=== PATIENT | male | born 1930 | race Caucasian/White ===

== ENCOUNTER → 2016-07-23 | Outpatient (CLI) | payer MEDICARE, OTHER | END | disposition home or self-care (01) | LOC: GT 08:02 | PROVIDERS: ATTEND Internal Medicine | DX: N39.0 Urinary tract infection, site not specified (principal); D53.9 Nutritional anemia, unspecified; E11.9 Type 2 diabetes mellitus without complications ==

== ENCOUNTER → 2016-08-03 | Outpatient (CLI) | payer MEDICARE, OTHER | END | disposition home or self-care (01) | LOC: GT 09:00 | PROVIDERS: ATTEND Internal Medicine | DX: Z51.81 Encounter for therapeutic drug level monitoring (principal); E55.9 Vitamin D deficiency, unspecified ==

== ENCOUNTER → 2016-08-27 | Outpatient (CLI) | payer MEDICARE, OTHER | END | disposition home or self-care (01) | LOC: GT 07:40 | PROVIDERS: ATTEND Internal Medicine | DX: I10 Essential (primary) hypertension (principal); E11.9 Type 2 diabetes mellitus without complications; R27.9 Unspecified lack of coordination ==

== ENCOUNTER → 2017-02-25 | Outpatient (CLI) | payer MEDICARE, OTHER | END | disposition home or self-care (01) | LOC: GT 05:51 | PROVIDERS: ATTEND Internal Medicine | DX: E03.9 Hypothyroidism, unspecified (principal); E11.9 Type 2 diabetes mellitus without complications; E55.9 Vitamin D deficiency, unspecified ==

== ENCOUNTER → 2017-05-03 | Outpatient (CLI) | payer MEDICARE, OTHER | END | disposition home or self-care (01) | LOC: GT 09:50 | PROVIDERS: ATTEND Internal Medicine | DX: J11.2 Influenza due to unidentified influenza virus with gastrointestinal manifestations (principal) ==

== ENCOUNTER → 2017-06-14 | Outpatient (CLI) | payer MEDICARE, OTHER | LOC: GT 06:20 | PROVIDERS: ATTEND Internal Medicine | DX: D53.9 Nutritional anemia, unspecified (principal); D50.9 Iron deficiency anemia, unspecified; I10 Essential (primary) hypertension; R60.9 Edema, unspecified | CPT/HCPCS: 36415; 80053; 85025; P9603 ==

== ENCOUNTER → 2017-07-26 | Outpatient (CLI) | payer MEDICARE, OTHER | LOC: GT 06:25 | PROVIDERS: ATTEND Internal Medicine | DX: E11.9 Type 2 diabetes mellitus without complications (principal); I50.9 Heart failure, unspecified ==

== ENCOUNTER → 2017-08-02 | Outpatient (CLI) | payer MEDICARE, OTHER | LOC: GT 07:13 | PROVIDERS: ATTEND Internal Medicine | DX: I10 Essential (primary) hypertension (principal); E11.9 Type 2 diabetes mellitus without complications; E55.9 Vitamin D deficiency, unspecified; E50.9 Vitamin A deficiency, unspecified; E63.9 Nutritional deficiency, unspecified; D50.9 Iron deficiency anemia, unspecified; E03.9 Hypothyroidism, unspecified ==

== ENCOUNTER → 2017-08-26 | Outpatient (CLI) | payer MEDICARE, OTHER | LOC: GT 06:15 | PROVIDERS: ATTEND Internal Medicine | DX: G31.84 Mild cognitive impairment of uncertain or unknown etiology (principal); E11.9 Type 2 diabetes mellitus without complications; E03.9 Hypothyroidism, unspecified; E63.9 Nutritional deficiency, unspecified; D50.9 Iron deficiency anemia, unspecified; I10 Essential (primary) hypertension ==

== ENCOUNTER → 2017-09-06 | Outpatient (CLI) | payer MEDICARE, OTHER | LOC: GT 10:12 | PROVIDERS: ATTEND Internal Medicine | DX: R60.9 Edema, unspecified (principal); I12.9 Hypertensive chronic kidney disease with stage 1 through stage 4 chronic kidney disease, or unspecified chronic kidney disease; N18.9 Chronic kidney disease, unspecified ==

== ENCOUNTER → 2018-05-17 | Outpatient (CLI) | payer MEDICARE, OTHER | LOC: GT 07:08 | PROVIDERS: ATTEND Internal Medicine | DX: N39.0 Urinary tract infection, site not specified (principal) ==

== ENCOUNTER → 2018-05-28 | Outpatient (CLI) | payer MEDICARE, OTHER ==
--- NOTE | 2018-05-28 17:49 | US ---
EXAM DESCRIPTION: Extremity,Lower RT Arteries (accession [id number]), Extremity,Lower LT Arteries (accession [id number]): Ultrasound. CLINICAL HISTORY: PERIPHERAL VASCULAR DISEASE. Graft in the left femoral artery. COMPARISON: None. TECHNIQUE: Doppler evaluation of the bilateral lower extremity arterial flow waveforms and velocities. FINDINGS: Arterial waveforms in the right lower extremity are triphasic in the right SPEECH ASSISTANT and right peroneal artery. Biphasic in the right femoral artery, right popliteal artery, and the right posterior tibial artery. Broader waveforms in the popliteal artery and posterior tibial artery. Large broad monophasic waveform in the right dorsalis pedis artery.. Arterial waveforms in the left lower extremity are triphasic in the left SPEECH ASSISTANT. Biphasic in the proximal left femoral artery. Monophasic from the left mid femoral artery to the dorsalis pedis artery with progressively decreasing height, and progressive broadening of the waveforms.. Comments: Velocities are higher in the right lower extremity. Significantly high velocity in the right dorsalis pedis artery could indicate an early stenosis more proximally. IMPRESSION: Bilateral Doppler evaluation of lower extremity systems showing significant atherosclerotic occlusive disease from the left mid femoral artery to the left dorsalis pedis artery. Possible stenosis in the distal right anterior tibial artery or proximal right dorsalis pedis artery. Electronically signed by: Evan Stoner MD 05/28/2018 5:48 PM COMMERCIAL CREDIT HEAD
--- NOTE | 2018-05-28 17:49 | US ---
EXAM DESCRIPTION: Extremity,Lower RT Arteries (accession [id number]), Extremity,Lower LT Arteries (accession [id number]): Ultrasound. CLINICAL HISTORY: PERIPHERAL VASCULAR DISEASE. Graft in the left femoral artery. COMPARISON: None. TECHNIQUE: Doppler evaluation of the bilateral lower extremity arterial flow waveforms and velocities. FINDINGS: Arterial waveforms in the right lower extremity are triphasic in the right MELT SUPERVISOR and right peroneal artery. Biphasic in the right femoral artery, right popliteal artery, and the right posterior tibial artery. Broader waveforms in the popliteal artery and posterior tibial artery. Large broad monophasic waveform in the right dorsalis pedis artery.. Arterial waveforms in the left lower extremity are triphasic in the left MELT SUPERVISOR. Biphasic in the proximal left femoral artery. Monophasic from the left mid femoral artery to the dorsalis pedis artery with progressively decreasing height, and progressive broadening of the waveforms.. Comments: Velocities are higher in the right lower extremity. Significantly high velocity in the right dorsalis pedis artery could indicate an early stenosis more proximally. IMPRESSION: Bilateral Doppler evaluation of lower extremity systems showing significant atherosclerotic occlusive disease from the left mid femoral artery to the left dorsalis pedis artery. Possible stenosis in the distal right anterior tibial artery or proximal right dorsalis pedis artery. Electronically signed by: Evan Stoner MD 05/28/2018 5:48 PM REVENUE STAMP CUTTER
== END ==
LOC: US 08:54
PROVIDERS: ATTEND Internal Medicine
DX: I73.9 Peripheral vascular disease, unspecified (principal); I70.203 Unspecified atherosclerosis of native arteries of extremities, bilateral legs

== ENCOUNTER 2018-08-12 07:45 | Inpatient (IN) | payer MEDICARE, OTHER ==
--- NOTE | 2018-08-12 08:27 | RAD ---
EXAM DESCRIPTION: Hip,Left 2 Views CLINICAL HISTORY: fall with pain in left hip COMPARISON: None. IMPRESSION: 2 views of the left hip show comminuted mildly displaced intertrochanteric fracture of the left hip with mild proximal displacement of the distal fracture fragment. Mild varus deformity is identified. Severe vascular calcifications are identified. Surgical clips in the medial left thigh soft tissue is seen. Electronically signed by: Blane Smiley MD 08/12/2018 8:24 AM CDT
--- NOTE | 2018-08-12 08:28 | RAD ---
EXAM DESCRIPTION: Pelvis CLINICAL HISTORY: fall with pain in left hip COMPARISON: None. IMPRESSION: Single AP supine view of the pelvis shows rotation of the pelvis. Mildly displaced comminuted intertrochanteric fracture of the left hip is seen as described on x-rays of the left hip from today. Intramedullary giselle and gamma nail fixation of the right proximal femur is seen with healed intertrochanteric fracture. Moderate osteoarthritic changes of the right hip are seen with mild osteoarthritic changes of the left hip. Osseous structures are diffusely osteopenic. Severe vascular calcifications are identified. Electronically signed by: Blane Smiley MD 08/12/2018 8:25 AM CDT
--- NOTE | 2018-08-12 08:49 | ED.PDOC ---
History of Present Illness - General Chief Complaint: Lower Extremity Injury Stated Complaint: L lower leg deformity/pain Time Seen by Provider: 08/12/18 07:49 Source: patient Exam Limitations: no limitations - History of Present Illness Initial Comments: the patient is an 88-year-old male brought in for more than the intermediate secondary to an accidental fall with left hip pain as well as some mild external rotation. The patient was unable to walk after this. Normally he walks with a walker. He is alert pleasant and cooperative. Pain is moderate without movement but does increase with movement. He does have known history of significant peripheral vascular disease and does have a pressure ulcer that is slowly healing on the left heel. He does appear to be in a normal sinus rhythm on the quality assurance monitor body. No other obvious injuries but aside from a small contusion to the left forearm. He apparently does not take any high potency blood thinners. He is new to our system here. He had a right hip done 5 years ago in [place]. Timing/Duration: momentarily Severity: moderate Improving Factors: immobilization Worsening Factors: movement Associated Symptoms: denies symptoms Allergies/Adverse Reactions: Allergies Doxycycline Allergy (Verified 08/12/18 08:00) Penicillins Allergy (Verified 08/12/18 08:00) Sulfa Antibiotics Allergy (Verified 08/12/18 08:00) Home Medications: Ambulatory Orders Acetaminophen [Tylenol] 500 mg PO Q6HR PRN 08/12/18 Arginine 500 mg PO BID 08/12/18 Ascorbic Acid [Vitamin C] 500 mg PO DAILY 08/12/18 Aspirin [Cesario Low Dose] 81 mg PO DAILY 08/12/18 Cetirizine HCl [ZyrTEC] 10 mg PO DAILY 08/12/18 Cholecalciferol [Vitamin D3] 1,000 unit PO DAILY 08/12/18 Ferrous Sulfate [Feosol Tab] 325 mg PO DAILY 08/12/18 Folic Acid 400 mcg PO DAILY 08/12/18 Furosemide Tab [Lasix Tab] 40 mg PO .Q0800&1200 08/12/18 Insulin Detemir [Levemir Pen] 50 units SC DAILY 08/12/18 Levothyroxine Sodium 137 mcg PO DAILY 08/12/18 Lisinopril 20 mg PO DAILY 08/12/18 Melatonin 6 mg PO BEDTIME PRN 08/12/18 Multiple Vitamins W/ Minerals [Multi Vitamin and Mineral] 1 tab PO DAILY 08/12/18 Polyethylene Glycol 3350 [Miralax] 17 gm PO DAILY 08/12/18 Vitamin A [Natural Vitamin A] 10,000 unit PO DAILY 08/12/18 guaiFENesin/DEXTROMETH SYRUP [Robitussin Dm] 10 ml PO TID PRN 08/12/18 Review of Systems - Review of Systems Constitutional: States: no symptoms reported EENTM: States: no symptoms reported Respiratory: States: no symptoms reported Cardiology: States: no symptoms reported Gastrointestinal/Abdominal: States: no symptoms reported Genitourinary: States: no symptoms reported Musculoskeletal: States: see HPI Skin: States: see HPI Neurological: States: other - he does apparently have some mild dementia but he knows where he is in what is going on. He is able to give a fair amount of his medical history accurately. He is not certain of all of his medications. Endocrine: States: no symptoms reported Hematologic/Lymphatic: States: no symptoms reported All other Systems: No Change from Baseline Past Medical History (General) - Patient Medical History Hx Stroke: No Hx Cardiac Disorders: Yes - PVD Hx Congestive Heart Failure: No Hx Hypertension: Yes Hx Thyroid Disease: Yes - Hypothyroidism Hx Diabetes: Yes Hx Renal Disease: Yes - Chronic kidney disease - Vaccination History Hx Influenza Vaccination: - Unknown Hx Pneumococcal Vaccination: - Unknown - Social History Hx Tobacco Use: No Hx Alcohol Use: No - Activities of Daily Living Penitentiary/Assisted Living (if applicable):: [facility] Family Medical History - Family History Father Family History: Unknown Living Status: Physical Exam - Physical Exam General Appearance: Alert, No apparent distress Eye Exam: bilateral normal Ears, Nose, Throat: hearing grossly normal, normal ENT inspection, normal pharynx Neck: full range of motion, supple Respiratory: lungs clear, normal breath sounds, no respiratory distress, no accessory muscle use Cardiovascular/Chest: regular rate, rhythm, no edema Peripheral Pulses: radial,right: 2+, radial,left: 2+, dorsalis pedis,right: 1+, dorsalis pedis,left: 1+ Gastrointestinal/Abdominal: non tender, soft Rectal Exam: deferred Back Exam: no vertebral tenderness Extremity: no calf tenderness, pelvis stable - normal range of motion given age and previous surgery of the right lower extremity. No pain to palpation of the left foot kneeor distal femur. Pain is in the left hip. It is made worse with any movement., other - he does have +1 chronic edema to the left foot. Neurologic: oncology rep II-XII nml as tested, alert, normal mood/affect, oriented x 3 Skin Exam: normal color - except for bruising as noted above. Comments: Vital Signs - 24 hr 08/12/18 08:01 Temperature 97.9 F Pulse Rate [ 88 Apical] Respiratory 18 Rate Blood Pressure 171/87 [Left Arm] O2 Sat by Pulse 93 L Oximetry Progress - Progress Progress: 08/12/18 08:52 the patient is an 88-year-old male presenting from the intermediate after an accidental fall. He has sustained a comminuted mildly displaced left intertrochanteric fracture that is closed. Neurovascularly he appears to be at his baseline. He does have chronic peripheral vascular disease of the left lower extremity. He is not requiring any pain medications at this time. We will go ahead and place a Bautista catheter. Preoperative blood work is being ordered. He will likely need of repair to resume mobility and functional status. Orthopedics has been contacted and we are waiting for their evaluation. No other obvious large injury from the fall. 08/12/18 09:30 the patient had a packet of generally this morning before he got out of bed. No other oral intake at this time. He has not yet had his morning medications. The patient is going to be admitted to the internal medicine service and orthopedics will plan to repair the fracture. Coags are still pending secondary to technical difficulties. - Results/Orders Results/Orders: Laboratory Results - last 24 hr 08/12/18 08/12/18 08/12/18 08:30 08:30 08:30 WBC 4.0 L RBC 3.72 L Hgb 11.2 L Hct 33.7 L MCV 90.7 MCH 30.2 MCHC 33.3 RDW 14.8 H Plt Count 102 L MPV 11.7 H Absolute Neuts (auto) 2.60 Absolute Lymphs (auto) 1.10 Absolute Monos (auto) 0.30 Absolute Eos (auto) 0.00 Absolute Basos (auto) 0.00 Neutrophils % 64.9 Lymphocytes % 26.3 Monocytes % 8.5 Eosinophils % 0.0 L Basophils % 0.3 PTT (SP) Cancelled Sodium 136 Potassium 4.5 Chloride 102 Carbon Dioxide 25 Anion Gap 13.5 BUN 44 H Creatinine 1.76 H BUN/Creatinine Ratio 25.0 H Random Glucose 116 H Serum Osmolality 284.1 Calcium 8.5 Magnesium 2.1 Total Bilirubin 0.6 AST 20 ALT 14 Alkaline Phosphatase 70 Serum Total Protein 6.8 Albumin 3.6 Globulin 3.2 Albumin/Globulin Ratio 1.1 x-ray of left hip and pelvis show a moderately comminuted mildly displaced intertrochanteric fracture on the left closed. Departure - Departure Clinical Impression: Closed fracture of left hip Qualifiers: Encounter type: initial encounter Qualified Code(s): S72.002A - Fracture of unspecified part of neck of left femur, initial encounter for closed fracture Disposition: Admit Patient Condition: Fair Departure Forms: ED Discharge - Pt. Copy, Patient Portal Self Enrollment Referrals: RJ BRADSHAW [Primary Care Provider] - 1-2 Weeks Home Medications: Ambulatory Orders Acetaminophen [Tylenol] 500 mg PO Q6HR PRN 08/12/18 Arginine 500 mg PO BID 08/12/18 Ascorbic Acid [Vitamin C] 500 mg PO DAILY 08/12/18 Aspirin [Cesario Low Dose] 81 mg PO DAILY 08/12/18 Cetirizine HCl [ZyrTEC] 10 mg PO DAILY 08/12/18 Cholecalciferol [Vitamin D3] 1,000 unit PO DAILY 08/12/18 Ferrous Sulfate [Feosol Tab] 325 mg PO DAILY 08/12/18 Folic Acid 400 mcg PO DAILY 08/12/18 Furosemide Tab [Lasix Tab] 40 mg PO .Q0800&1200 08/12/18 Insulin Detemir [Levemir Pen] 50 units SC DAILY 08/12/18 Levothyroxine Sodium 137 mcg PO DAILY 08/12/18 Lisinopril 20 mg PO DAILY 08/12/18 Melatonin 6 mg PO BEDTIME PRN 08/12/18 Multiple Vitamins W/ Minerals [Multi Vitamin and Mineral] 1 tab PO DAILY 0 08/12/18 Polyethylene Glycol 3350 [Miralax] 17 gm PO DAILY 08/12/18 Vitamin A [Natural Vitamin A] 10,000 unit PO DAILY 08/12/18 guaiFENesin/DEXTROMETH SYRUP [Robitussin Dm] 10 ml PO TID PRN 08/12/18 Decision To Admit - Decistion To Admit Decision to Admit Reason: Medical Nature Decision to Admit Date: 08/12/18 Decision to Admit Time: 09:32
[2018-08-12] MEDS ORDERED: LIDOCAINE 1% 10 ML VIAL INJ ONE (10:00)
[2018-08-12] MEDS ORDERED: PROPOFOL 200 MG/20 ML VIAL IV ONE (10:00)
[2018-08-12] MEDS ORDERED: DEXAMETHASONE INJ 10 MG/ML VIAL IV ONE (10:00)
[2018-08-12] MEDS ORDERED: ePHEDrine SULF 50 MG/ML IV ONE (10:00)
[2018-08-12] MEDS ORDERED: ONDANSETRON INJ 4 MG/2 ML VIAL IV ONE (10:00)
--- NOTE | 2018-08-12 11:51 | HP ---
SUPERVISING PHYSICIAN: Chris Anderson MD CHIEF COMPLAINT: Left hip pain. HISTORY OF PRESENT ILLNESS: This is an 88 year-old male patient who resides at the skilled nursing who had an accidental fall and presented with left hip. He normally uses a walker but hasn't felt himself today. He has not been at this hospital before. He is noted to have some mild external rotation of the hips. X-ray was done of the left hip. This showed a comminuted mildly displaced intertrochanteric fracture of the left hip with mild displacement of the distal fracture fragment. He is admitted for this reason after Dr. Abdi was consulted and agreed to surgical intervention. On examination, the patient is not complaining of any significant pain but mild pain. He is really wanting to get some water at this time. PAST MEDICAL HISTORY: 1. Hypertension. 2. Coronary artery disease. 3. Type 2 diabetes mellitus. 4. Anemia. 5. Hypothyroidism. PAST SURGICAL HISTORY: 1 Coronary artery bypass graft. 2. Right hip surgery. 3. Transurethral resection of prostate. CURRENT MEDICATIONS: 1. Tylenol 500 mg every 6 hours p.r.n. 2. Arginine 500 mg mg p.o. b.i.d. 3. Vitamin C 500 mg p.o. daily. 4. Aspirin 81 mg p.o. daily. 5. Cetirizine 30 mg p.o. daily. 6. Vitamin D3 1000 units p.o. daily. 7. Ferrous sulfate 325 mg p.o. daily. 8. Folic acid 400 mcg p.o. daily. 9. Lasix 40 mg p.o. in the morning. 10. Guaifenesin/dextromethorphan 2 mL 3 times a day p.r.n. 11. Levemir 50 units subcutaneous daily. 12. Levothyroxine 137 mcg p.o. daily. 13. Lisinopril 20 mg p.o. daily. 14. Melatonin 60 mg p.o. at bedtime. 15. Multivitamin 1 tab p.o. daily. 16. Miralax 17 grams p.o. daily. 17. Vitamin A 10,000 units p.o. daily. ALLERGIES: Doxycycline, penicillin and sulfa drugs. FAMILY HISTORY: The patient does not report any significant family history. SOCIAL HISTORY: The patient lives in a skilled nursing. Denies alcohol or illicit, no smoking. REVIEW OF SYSTEMS: CONSTITUTIONAL: No fevers, chills, no recent weight loss HEENT: Negative for nasal congestion, headache, sore throats, vision changes. RESPIRATORY: No coughing or pleuritic chest pain. CARDIOVASCULAR: No chest pain, palpitations or peripheral edema. GASTROINTESTINAL: No nausea, vomiting, diarrhea, constipation or abdominal pain. GENITOURINARY: Negative for urinary frequency or flank pain. HEMATOLOGIC: No easy bruising or transfusion reactions. MUSCULOSKELETAL: Positive for the left hip pain. No other joint swelling or joint pain at this time. ENDOCRINE: No polydipsia, polyuria, palpitations or cold intolerance. NEUROLOGIC: No seizures or syncopal episodes. PHYSICAL EXAMINATION: VITAL SIGNS: Blood pressure 130/28, heart rate 86, respiratory rate 18, temperature 97.5. Oxygen saturation 99%, GENERAL: The patient is alert. HEENT: Tympanic membranes clear bilaterally. Oropharynx is pink, moist without any lesions. RESPIRATORY: Lungs clear to auscultation bilaterally. CARDIOVASCULAR: Regular rate and rhythm\, normal S1, S2. ABDOMEN: Soft Positive bowel sounds. EXTREMITIES: Lower extremities show mild external rotation of the left lower extremity. He does have some tenderness to palpation over the lateral aspect of the left hip and knee. Peripheral pulses are 2+, capillary refill less than 2 seconds. LABORATORY: Reviewed and show a white count of 4.0, hemoglobin 11.2, hematocrit 33.7, platelet count 102. Coagulation studies are normal. Chemistries remarkable for elevated BUN of 44, creatinine 1.76, glucose 116. Urinalysis is not consistent with a urinary tract infection. ASSESSMENT: 1. Left hip fracture. 2. Hypertension. 3. History of coronary artery disease without acute complications. 4. Diabetes mellitus type 2. 5. History of dementia but at this time he is pleasant and alert and appears to be oriented. 6. Acute on chronic kidney disease. PLAN: At this time, we will admit the patient and will undergo surgical intervention by Dr. Abdi tomorrow. I have placed the preoperative orders in the computer. I will resume his home medications as well and will be anticoagulated postoperatively. I am going to start some IV fluids on him as he does have some acute kidney injury. [id number] [facility]
[2018-08-12] MEDS ORDERED: SODIUM CHLORIDE 0.9% (FLUSH) 10 ML SYG IV PRN ×2 (13:31→13:32)
[2018-08-12] MEDS ORDERED: VANCOMYCIN HCL INJ 1,000 MG in SODIUM CHLORIDE 0.9% 250ML 250 ML IVPB ONE (13:31)
[2018-08-12] MEDS ORDERED: LACTATED RINGERS 1,000 ML IVS PRN (13:31)
[2018-08-12] MEDS ORDERED: IV SET AND CAP CHANGE INJ INJ SCH (14:00)
[2018-08-12] MEDS ORDERED: SODIUM CHLORIDE 0.9% 250ML 250 ML ONE (14:09)
[2018-08-12] MEDS ORDERED: VANCOMYCIN HCL INJ 1,000 MG VIAL IVPB ONE ×2 (14:10→14:16)
--- NOTE | 2018-08-12 14:41 | RAD ---
EXAM DESCRIPTION: Chest,1 View CLINICAL HISTORY: Pre-Op COMPARISON: None available FINDINGS: Postoperative changes in the mediastinum. The cardiac silhouette is at the upper limits of normal size. Mediastinal contours are otherwise unremarkable. There is no airspace consolidation or pleural effusion. The bronchovascular markings are within normal limits, and the lungs are not hyperinflated. There is no pneumothorax or acute fracture. IMPRESSION: Postoperative changes in the mediastinum without acute intrathoracic abnormality. Electronically signed by: Cesar Alonzo MD 08/12/2018 2:38 PM CDT
[2018-08-12] MEDS: IV SET AND CAP CHANGE INJ INJ SCH (15:36)
[2018-08-12] MEDS: HYDROcodone 7.5MG/APAP 325MG 1 EA TAB PO PRN (20:04)
[2018-08-12] MEDS ORDERED: MORPHINE SULFATE INJ 10 MG/ML VIAL IV PRN (20:08)
[2018-08-13] MEDS: LACTATED RINGERS 1,000 ML IVS PRN ×2 (00:09→12:30)
[2018-08-13] MEDS ORDERED: BUPIVACAINE 0.5% 30 ML VIAL INJ ONE ×2 (06:34→09:06)
[2018-08-13] MEDS ORDERED: ACETAMINOPHEN IV 1000MG 100 ML ONE (06:34)
[2018-08-13] MEDS ORDERED: BUPIVACAINE LIPOSOME 13.3 MG/ML VIAL INJ ONE (06:37)
[2018-08-13] MEDS ORDERED: CEFAZOLIN SODIUM 2 GM IVPB ONE (06:43)
[2018-08-13] MEDS ORDERED: VANCOMYCIN HCL INJ 1,000 MG VIAL IVPB ONE ×2 (06:43→15:13)
[2018-08-13] MEDS ORDERED: SODIUM CHLORIDE 0.9% 250ML 250 ML ONE ×2 (06:43→15:13)
[2018-08-13] MEDS ORDERED: VANCOMYCIN HCL INJ 1,000 MG in SODIUM CHLORIDE 0.9% 250ML 250 ML IVPB SCH ×2 (07:00→09:30)
[2018-08-13] MEDS ORDERED: ceFAZolin SODIUM 2 GM in SODIUM CHL 0.9% 50ML MIN-BAG+ 50 ML IVPB SCH (07:00)
[2018-08-13] MEDS ORDERED: ceFAZolin SODIUM 2 GRAMS PREMI 2 GM in PREMIX BAG 1 BAG IVPB SCH ×2 (07:00→09:15)
[2018-08-13] MEDS ORDERED: fentaNYL CITRATE INJ 50 MCG/ML AMP ONE (07:37)
[2018-08-13] MEDS ORDERED: ELECTROLYTE-A 1,000 ML IVS ONE (08:19)
[2018-08-13] MEDS: ceFAZolin SODIUM 1 GM VIAL ONE ×2 (08:24→08:41)
[2018-08-13] MEDS: VANCOMYCIN HCL INJ 1,000 MG VIAL IVPB ONE ×2 (08:25→08:41)
--- NOTE | 2018-08-13 09:53 | RAD ---
EXAM DESCRIPTION: Fluoroscopy Up to 1Hr CLINICAL HISTORY: 88 years Male, LEFT HIP FRACTURE COMPARISON: Left hip radiographs 08/12/2018 IMPRESSION: Multiple intraoperative fluoroscopic images were saved for the benefit of the surgeon. Gamma nail placement traversing a intertrochanteric left femoral fracture. Please see procedure report for full details. Fluoroscopy time: 104 seconds Fluoroscopic images: 4 Electronically signed by: Ronaldo Alejandra MD 08/13/2018 9:50 AM CDT
--- NOTE | 2018-08-13 10:07 | RAD ---
EXAM DESCRIPTION: Hip,Left 2 Views CLINICAL HISTORY: 88 years, Male, post op COMPARISON: None TECHNIQUE: AP and frog leg lateral views of the hip IMPRESSION: Two-view left hip show postoperative changes status post open reduction internal fixation of an intertrochanteric fracture of the left hip. Hardware in good position. No complication. Electronically signed by: Jameson Newton MD 08/13/2018 10:04 AM CDT
--- NOTE | 2018-08-13 10:10 | RAD ---
EXAM DESCRIPTION: Hand,Left 3 Views CLINICAL HISTORY: EDEMA AND BRUISING COMPARISON: None Available. TECHNIQUE: Four views left hand FINDINGS: Four views of the hand demonstrate severe degenerative changes and severe osteopenia, with hypertrophic degenerative changes and subluxation greatest at the base of the thumb at the CMC joint. The images are not labeled and presumed to represent the requested left side. Marked hypertrophic changes involving the proximal interphalangeal joints on the lateral view are noted. Marked vascular calcification is present. Acute fracture or dislocation is not apparent. Hypertrophic changes involving the fibular head suggesting old injury and/or advanced degenerative changes. IMPRESSION: 1. Marked degenerative disease and marked osteopenia of the left hand without distinct or definite fracture. 2. Degenerative changes and hypertrophic changes with subluxation are greatest at the CMC joint of the thumb with diffuse moderate changes elsewhere. Electronically signed by: Cm Bradley MD 08/13/2018 10:07 AM CDT
--- NOTE | 2018-08-13 10:13 | RAD ---
EXAM DESCRIPTION: Pelvis,2 or More Views CLINICAL HISTORY: 88 years Male, post op COMPARISON: None. FINDINGS: The bony pelvis and acetabulum and superior and inferior pubic rami appear intact. Bilateral hip fixation with intramedullary rods and interlocking fluted nail on the right and compression screw on the left is noted. Marked hypertrophic changes and foreshortening on the right without acute new fracture is noted. There is an internally fixed fracture at the base of the neck and the proximal intertrochanteric region on the left with satisfactory internal fixation. The compression screw extends into the central portion of the femoral head. IMPRESSION: Marked osteopenia with previous fixation and marked hypertrophic change and foreshortening of the right hip region and internally fixed acute left hip fracture at the base of the neck and proximal intertrochanteric region with compression screw and interlocking intramedullary giselle. Electronically signed by: Cm Bradley MD 08/13/2018 10:10 AM CDT
[2018-08-13] MEDS ORDERED: DEXTROSE 50% 25 GM/50 ML SYG IV PRN (11:17)
[2018-08-13] MEDS ORDERED: GLUCAGON INJ 1 MG VIAL SUBCU PRN (11:17)
[2018-08-13] MEDS: INSULIN LISPRO 100 UNITS/ML PEN SUBCU SCH ×3 (12:31→21:11)
[2018-08-13] MEDS ORDERED: ceFAZolin SODIUM 2 GRAMS PREMI 50 ML IVPB ONE ×4 (15:04→19:24)
[2018-08-13] MEDS: ceFAZolin SODIUM 2 GRAMS PREMI 2 GM in PREMIX BAG 1 BAG IVPB SCH ×2 (15:08→22:39)
[2018-08-13] MEDS: VANCOMYCIN HCL INJ 1,000 MG in SODIUM CHLORIDE 0.9% 250ML 250 ML IVPB SCH (19:44)
--- NOTE | 2018-08-13 20:55 | PN ---
DATE: 08/13/18 SUPERVISING PHYSICIAN: Chris Anderson M.D. SUBJECTIVE: The patient just returned from surgery after gamma nail procedure. He had no intraoperative complications. He is alert. His pain is well controlled. OBJECTIVE: VITAL SIGNS: Temperature 98, pulse 107, blood pressure 109/78, respirations 16, satting 96% on room air. Weight 76.4 kg. GENERAL: The patient is resting comfortably. Appears to be in no acute distress. He is alert. CHEST: Lungs were clear to auscultation bilaterally. HEART: Regular rate and rhythm. ABDOMEN: Soft, non-tender, positive bowel sounds. EXTREMITIES: Left hip has a dressing in place which is clean and dry. Pulses distally are strong, capillary refill is brisk. NEUROLOGIC: He is alert and oriented times three. ASSESSMENT: 1. Left hip fracture with gamma nail repair. 2. Hypertension. 3. History of coronary artery disease without acute complications. 4. Diabetes mellitus type 2. 5. History of dementia but at this time he is pleasant and alert and appears to be oriented. 6. Acute on chronic kidney disease. PLAN: Will follow the patient as he progresses through his postoperative care and rehabilitation efforts. Once able to, at this point it appears that he will discharge back to shelter. Until he can transition back to outpatient management will continue to monitor and treat as needed. [facility][id number] [facility]
[2018-08-13] MEDS: ARGININE 500 MG PO SCH (21:11)
[2018-08-14] MEDS: LACTATED RINGERS 1,000 ML IVS PRN (00:53)
[2018-08-14] MEDS: ceFAZolin SODIUM 2 GRAMS PREMI 2 GM in PREMIX BAG 1 BAG IVPB SCH (06:32)
[2018-08-14] MEDS ORDERED: SODIUM CHLORIDE 0.9% 250ML 250 ML ONE (07:23)
[2018-08-14] MEDS ORDERED: VANCOMYCIN HCL INJ 1,000 MG VIAL IVPB ONE (07:23)
[2018-08-14] MEDS: INSULIN LISPRO 100 UNITS/ML PEN SUBCU SCH ×4 (07:29→20:57)
[2018-08-14] MEDS: VANCOMYCIN HCL INJ 1,000 MG in SODIUM CHLORIDE 0.9% 250ML 250 ML IVPB SCH (07:38)
[2018-08-14] MEDS ORDERED: ACETAMINOPHEN 325 MG TAB PO ONE (08:11)
--- NOTE | 2018-08-14 08:16 | PN ---
DATE: 08/14/18 SUBJECTIVE: Mr. Lassiter is doing well and his pain is well controlled. OBJECTIVE: Afebrile. Vital signs stable. Dressing is clean, dry and intact. ASSESSMENT: Status post Gamma nail. PLAN: The plan at this point is for him to begin partial weightbearing. #[id number] [facility]
--- NOTE | 2018-08-14 08:20 | OP ---
DATE OF PROCEDURE: 08/13/18 PREOPERATIVE DIAGNOSIS: 1. Left intertrochanteric hip fracture. POSTOPERATIVE DIAGNOSIS: 1. Left intertrochanteric hip fracture. PROCEDURE: 1. Left hip Gamma nail. SURGEON: Nabil Abdi MD. ENVIRONMENTAL REMEDIATION SPECIALIST: Evan Walters CST, SA-C. ANESTHESIA: General anesthesia. COMPLICATIONS: None. FINDINGS: Intertrochanteric fracture of the hip. INDICATION: Mr. Lassiter has a history of a fall that occurred on the day of presentation. Mr. Lassiter presented to the Emergency Room and the fracture was revealed. After discussing the fracture as well as the risks, benefits and alternatives to operative therapy, Mr. Lassiter gave informed consent for Gamma nailing. PROCEDURE: The patient was brought to the Operating Room and placed in the supine position. General anesthesia was administered and the patient was placed on the fracture table. The fracture was provisionally reduced under fluoroscopic imaging and after reduction, the leg and hemipelvis were sterilely prepped and draped. An incision was made just proximal to the greater trochanter and dissection was carried through the iliotibial band and down to the greater trochanter. A starting pin was placed and a one-step reamer was used to open the femoral canal. A 125 degree angled Gamma nail was inserted into the canal to the appropriate level. A guide pin was placed from the lateral cortex into the femoral head. The appropriate length compression screw was measured and inserted with the placement guided under direct imaging. Following that, the distal locking screw was drilled, measured, and placed under imaging. The proximal locking screw was placed through the outrigger into the top of the nail and the outrigger removed. The final construct was imaged and the wounds were thoroughly irrigated, followed by closure with Monocryl suture. Sterile dressings were placed. The patient was awoken from anesthesia and taken to the Recovery Room. POSTOPERATIVE PLAN: He will be partial weightbearing on postoperative day 1. #[id number] MTDD
[2018-08-14] MEDS ORDERED: SODIUM CHLORIDE 0.9% 500ML 500 ML IVS SCH (08:30)
[2018-08-14] MEDS: CETIRIZINE HCL 10 MG TAB PO SCH (08:59)
[2018-08-14] MEDS: LEVOTHYROXINE SODIUM 0.025 MG TAB PO SCH (08:59)
[2018-08-14] MEDS: LEVOTHYROXINE SODIUM 0.112 MG TAB PO SCH (08:59)
[2018-08-14] MEDS: FERROUS SULFATE 325 MG TAB PO SCH (08:59)
[2018-08-14] MEDS: LISINOPRIL 10 MG TAB PO SCH (08:59)
[2018-08-14] MEDS: ENOXAPARIN SODIUM 30 MG/0.3 ML SYG SUBCU SCH ×2 (09:00→20:50)
[2018-08-14] MEDS: ASCORBIC ACID 500 MG TAB PO SCH (09:00)
[2018-08-14] MEDS: POLYETHYLENE GLYCOL 3350 17 GM PCKT PO SCH (09:00)
[2018-08-14] MEDS: ASPIRIN (ENTERIC COATED) 81 MG TAB PO SCH (09:00)
[2018-08-14] MEDS: ARGININE 500 MG PO SCH ×2 (11:05→20:49)
[2018-08-14] MEDS: HYDROcodone 7.5MG/APAP 325MG 1 EA TAB PO PRN ×2 (11:25→20:50)
[2018-08-14] MEDS ORDERED: INSULIN DETEMIR 100 UNITS/ML PEN SUBCU ONE ×2 (14:30→16:35)
[2018-08-14] MEDS ORDERED: FUROSEMIDE INJ 40 MG/4 ML VIAL IV ONE (18:00)
--- NOTE | 2018-08-14 22:00 | PN ---
DATE: 08/14/18 SUPERVISING PHYSICIAN: Chris Anderson M.D. SUBJECTIVE: The patient's H&H early this morning had dropped to 7.5 and 22.2. I transfused him 2 units of packed RBCs which he has been tolerating. He says his pain has been fairly controlled, although he is quite sore with his rounds of physical therapy. He has had no fevers. No nausea or vomiting. OBJECTIVE: VITAL SIGNS: Temperature 97.9, pulse 91, blood pressure 120/70, respirations 16, satting 98% on room air. Weight 76.4 kg. GENERAL: The patient is resting comfortably, currently getting a transfusion. He is alert. CHEST: Clear to auscultation, just slightly diminished towards the bases. HEART: Regular rate and rhythm. ABDOMEN: Soft, non-tender. Positive bowel sounds. EXTREMITIES: Left hip has a dressing in place that is clean and dry. Pulses distally are strong, capillary refill is brisk. NEUROLOGIC: He is alert and oriented times three. LABORATORY: H&H this morning was 7.5 and 22.2. Chemistry shows normal electrolytes. BUN 50, creatinine is up to 1.98. Blood sugars are starting to rise, ranging between 137 and 262. ASSESSMENT: 1. Left hip fracture with gamma nail repair, postoperative day #2. 2. Postoperative anemia requiring transfusion of 2 units of packed red blood cells. 3. Hypertension. 4. History of coronary artery disease without acute complications. 5. Diabetes mellitus type 2. Patient now showing increase in blood sugars after starting on a diet. Will initiate long acting Levemir. 6. History of dementia but at this time he is pleasant and alert and appears to be oriented. 7. Acute on chronic kidney disease, some slight exacerbation secondary to some prerenal azotemia from a significant anemia requiring transfusion of packed red blood cells. PLAN: Will continue with postoperative care with physical therapy as well as transfuse 2 units of packed red blood cells to assist in his physical therapy efforts. Will recheck an H&H in the morning. Will continue with current plan of care and follow him with physical therapy until he can transition back to outpatient management. In regards to his blood sugars, I have started him back on his Levemir, but I have only started him at 25 units and will watch closely and increase to his normal 50 units daily as his blood sugars continue to show elevation. Until then will continue to monitor and treat as needed. #[id number] [facility]TDD
[2018-08-15] MEDS: FUROSEMIDE 40 MG TAB PO SCH ×3 (07:06→16:51)
[2018-08-15] MEDS: INSULIN LISPRO 100 UNITS/ML PEN SUBCU SCH ×4 (07:16→22:03)
--- NOTE | 2018-08-15 08:17 | PN ---
DATE: 08/15/18 SUBJECTIVE: Mr. Lassiter is doing well and his pain is well controlled. OBJECTIVE: Afebrile. Vital signs stable. Wound is clean. There are no signs or symptoms of infection. ASSESSMENT: Status post Gamma nail. PLAN: The plan at this point is for him to continue partial weightbearing. [facility][id number] [facility]
[2018-08-15] MEDS: HYDROcodone 7.5MG/APAP 325MG 1 EA TAB PO PRN ×3 (08:49→22:02)
[2018-08-15] MEDS: ENOXAPARIN SODIUM 30 MG/0.3 ML SYG SUBCU SCH ×2 (08:49→22:02)
[2018-08-15] MEDS: ARGININE 500 MG PO SCH ×2 (08:49→22:26)
[2018-08-15] MEDS: FERROUS SULFATE 325 MG TAB PO SCH (08:50)
[2018-08-15] MEDS: CETIRIZINE HCL 10 MG TAB PO SCH (08:50)
[2018-08-15] MEDS: LEVOTHYROXINE SODIUM 0.025 MG TAB PO SCH (08:50)
[2018-08-15] MEDS: LEVOTHYROXINE SODIUM 0.112 MG TAB PO SCH (08:50)
[2018-08-15] MEDS: ASPIRIN (ENTERIC COATED) 81 MG TAB PO SCH (08:50)
[2018-08-15] MEDS: POLYETHYLENE GLYCOL 3350 17 GM PCKT PO SCH (08:50)
[2018-08-15] MEDS: LISINOPRIL 10 MG TAB PO SCH (08:50)
[2018-08-15] MEDS ORDERED: INSULIN DETEMIR 100 UNITS/ML PEN SUBCU ONE (08:57)
[2018-08-15] MEDS: INSULIN DETEMIR 100 UNITS/ML PEN SUBCU SCH (08:58)
[2018-08-15] MEDS ORDERED: FUROSEMIDE 40 MG TAB ONE ×2 (09:09→16:35)
[2018-08-15] MEDS: ASCORBIC ACID 500 MG TAB PO SCH (09:33)
--- NOTE | 2018-08-15 13:13 | PN ---
SUPERVISING PHYSICIAN: Chris Anderson MD DATE: 08/15/18 SUBJECTIVE: The patient is sitting up in his hospital chair in his room. He has no complaints of nausea, vomiting, diarrhea, chest pain or shortness of breath. He did say his physical therapy is quite hard, but he understands he has to go through that and he will be discharged when appropriate to [facility] for rehab. OBJECTIVE: VITAL SIGNS: Temperature 98.2. Heart rate 86. Blood pressure 104/58. Respiratory rate 18. O2 saturation 97% on room air. RESPIRATORY: Essentially clear to auscultation bilaterally, but he is somewhat diminished at the bases. CARDIAC: Regular rate and rhythm. GASTROINTESTINAL: Abdomen is soft, nondistended, nontender. Bowel sounds are positive. EXTREMITIES: He has a dressing to his left lateral hip that is dry and intact. NEUROLOGIC: Alert and oriented times three. LABORATORY: Hemoglobin 9.2, hematocrit 27.2. Blood sugars have run between 84 and 233. All other labs and films have been reviewed via the EMR. ASSESSMENT: 1. Left hip fracture with Gamma nail repair per Dr. Nabil Abdi, orthopedic surgeon, postoperative day #3. 2. Postoperative anemia requiring transfusion of 2 units of packed red blood cells. 3. Hypertension. 4. History of coronary artery disease without acute complications. 5. Diabetes mellitus, type 2. 6. History of dementia, but at this time he is pleasant and alert and oriented x3. 7. Acute on chronic kidney disease, initially slight exacerbation secondary to some prerenal azotemia as well as significant anemia. PLAN: We will continue present supportive care. Orthopedic issues will be per Dr. Nabil Abdi, orthopedic surgeon. He will continue with physical therapy for strengthening and conditioning. When he is medically stable, he will be transferred to [facility] for further rehab. His hemoglobin and hematocrit are much improve today and I will recheck his H&H in the morning to make sure it is stabilized prior to transfer. Expect transfer in the next 2 to 3 days. He did have a blood sugar of 84 this morning and I did decrease his Levemir to 25 units this morning and we will reevaluate that tomorrow. We will continue to monitor the patient closely and follow as needed. [facility][id number] [facility]
[2018-08-15] MEDS: IV SET AND CAP CHANGE INJ INJ SCH (14:17)
[2018-08-16] MEDS: HYDROcodone 7.5MG/APAP 325MG 1 EA TAB PO PRN ×2 (04:48→21:37)
[2018-08-16] MEDS ORDERED: FUROSEMIDE 40 MG TAB ONE ×2 (08:11→16:27)
[2018-08-16] MEDS: INSULIN LISPRO 100 UNITS/ML PEN SUBCU SCH ×4 (08:18→21:31)
[2018-08-16] MEDS: ASPIRIN (ENTERIC COATED) 81 MG TAB PO SCH (08:19)
[2018-08-16] MEDS: LEVOTHYROXINE SODIUM 0.025 MG TAB PO SCH (08:19)
[2018-08-16] MEDS: FUROSEMIDE 40 MG TAB PO SCH ×2 (08:19→17:59)
[2018-08-16] MEDS: CETIRIZINE HCL 10 MG TAB PO SCH (08:19)
[2018-08-16] MEDS: POLYETHYLENE GLYCOL 3350 17 GM PCKT PO SCH (08:19)
[2018-08-16] MEDS: LEVOTHYROXINE SODIUM 0.112 MG TAB PO SCH (08:19)
[2018-08-16] MEDS: ENOXAPARIN SODIUM 30 MG/0.3 ML SYG SUBCU SCH ×2 (08:19→21:31)
[2018-08-16] MEDS: ASCORBIC ACID 500 MG TAB PO SCH (08:19)
[2018-08-16] MEDS: LISINOPRIL 10 MG TAB PO SCH (08:19)
[2018-08-16] MEDS: FERROUS SULFATE 325 MG TAB PO SCH (08:19)
[2018-08-16] MEDS: ARGININE 500 MG PO SCH ×2 (08:37→21:29)
[2018-08-16] MEDS: INSULIN DETEMIR 100 UNITS/ML PEN SUBCU SCH (08:38)
--- NOTE | 2018-08-16 17:16 | PN ---
DATE: 08/16/18 SUPERVISING PHYSICIAN: Gary Bhat M.D. SUBJECTIVE: The patient is lying in bed. He is asleep. He awakens easily. He has no complaints. He felt like his physical therapy was much better today. His pain had improved. Denies chest pain, nausea, vomiting, diarrhea, constipation or shortness of breath. OBJECTIVE: VITAL SIGNS: Temperature 98.2, heart rate 92, blood pressure 130/73, respiratory rate 18, O2 sat 96% on room air. RESPIRATORY: Essentially clear to auscultation bilaterally, although he is slightly diminished at the bases. CARDIAC: Regular rate and rhythm. GASTROINTESTINAL: Abdomen is soft, nondistended, non-tender. Bowel sounds are positive. EXTREMITIES: He has a dressing to his left lateral hip that is dry and intact. Bilateral pedal pulses are palpable at +2. NEUROLOGIC: He is awake, alert and oriented times three. LABORATORY: WBCs are 4.4 with hemoglobin and hematocrit that have stabilized to 9.4 and 28.1. Sodium is slightly low at 134 with potassium 4.1, chloride 103, carbon dioxide 22, BUN 53, creatinine 1.88 with a baseline creatinine of about 2. Calcium was slightly low at 7.8 with magnesium 1.9. All other labs and films have been reviewed via the EMR. ASSESSMENT: 1. Left hip fracture with Gamma nail repair per Dr. Nabil Abdi, orthopedic surgeon, postoperative day #3. 2. Postoperative anemia requiring transfusion of 2 units of packed red blood cells. His H&H has stabilized. 3. Hypertension. 4. History of coronary artery disease without acute complications. 5. Diabetes mellitus, type 2. 6. History of dementia. 7. Acute on chronic kidney disease. His baseline creatinines is about 2 and is now 1.88. PLAN: We will continue present supportive care. Continue with his physical therapy for strengthening and conditioning. His orthopedic issues will be per Dr. Nabil Abdi, orthopedic surgeon. Hopefully he can be discharged to [facility] for further rehab hopefully tomorrow. Will continue to monitor the patient closely and follow as needed. [facility][id number] [facility]
[2018-08-16] MEDS: SODIUM CHLORIDE 0.9% (FLUSH) 10 ML SYG IV SCH (21:32)
[2018-08-17] MEDS ORDERED: FUROSEMIDE 40 MG TAB ONE (07:04)
[2018-08-17] MEDS: INSULIN LISPRO 100 UNITS/ML PEN SUBCU SCH ×2 (07:12→11:41)
[2018-08-17] MEDS: SODIUM CHLORIDE 0.9% (FLUSH) 10 ML SYG IV SCH (08:04)
[2018-08-17] MEDS: LEVOTHYROXINE SODIUM 0.112 MG TAB PO SCH (08:04)
[2018-08-17] MEDS: ASPIRIN (ENTERIC COATED) 81 MG TAB PO SCH (08:04)
[2018-08-17] MEDS: LEVOTHYROXINE SODIUM 0.025 MG TAB PO SCH (08:04)
[2018-08-17] MEDS: FUROSEMIDE 40 MG TAB PO SCH (08:04)
[2018-08-17] MEDS: ASCORBIC ACID 500 MG TAB PO SCH (08:05)
[2018-08-17] MEDS: FERROUS SULFATE 325 MG TAB PO SCH (08:05)
[2018-08-17] MEDS: ENOXAPARIN SODIUM 30 MG/0.3 ML SYG SUBCU SCH (08:05)
[2018-08-17] MEDS: POLYETHYLENE GLYCOL 3350 17 GM PCKT PO SCH (08:05)
[2018-08-17] MEDS: CETIRIZINE HCL 10 MG TAB PO SCH (08:06)
[2018-08-17] MEDS: INSULIN DETEMIR 100 UNITS/ML PEN SUBCU SCH (08:06)
[2018-08-17] MEDS: ARGININE 500 MG PO SCH (08:09)
[2018-08-17] MEDS: LISINOPRIL 10 MG TAB PO SCH (08:13)
[2018-08-17 10:33] VITALS: O2SAT 99
[2018-08-17 14:11] VITALS: BP 96/58; TEMP 97.6
--- NOTE | 2018-08-17 16:41 | PN ---
DATE: 08/16/18 SUBJECTIVE: Mr. Lassiter is doing well. His pain is well controlled. OBJECTIVE: He is afebrile. Vital signs are stable. Wounds are clean. There are no signs or symptoms of infection. ASSESSMENT: 1. Status post gamma nail. PLAN: The plan at this point is to continue with partial weightbearing. [facility][id number] [facility]
--- NOTE | 2018-08-17 16:43 | PN ---
DATE: 08/17/18 SUBJECTIVE: He is doing well today. He is up to a chair. OBJECTIVE: He is afebrile. Vital signs are stable. Wounds are clean. There are no signs or symptoms of infection. ASSESSMENT: 1. Status post gamma nail. PLAN: He has been cleared medically for discharge. At this time, [facility] #[id number] [facility]TDD
--- NOTE | 2018-08-18 13:29 | DS ---
SUPERVISING PHYSICIAN: Gary Bhat MD DISCHARGE DIAGNOSIS: 1. Left hip fracture with Gamma nail repair per Dr. Nabil Abdi, orthopedic surgeon, postoperative day #4. 2. Postoperative anemia requiring transfusion of 2 units of packed red blood cells. His hemoglobin and hematocrit have stabilized. 3. Hypertension, stable. 4. History of coronary artery disease without acute complications. 5. Diabetes mellitus, type 2. 6. History of dementia. 7. Acute on chronic kidney disease. His baseline creatinines is about 2. HISTORY OF PRESENT ILLNESS: This is an 88-year-old male patient who resides at [facility]. He had an accidental fall and presented with left hip. He normally uses a walker. After falling, he just did not feel well. It was also noted he had some mild external rotation of the hip. X-ray was done of the left hip. This showed a comminuted, mildly displaced intertrochanteric fracture of the left hip with mild displacement of the distal fracture fragment. He was admitted to the hospital under hospitalist services and Dr. Abdi was consulted. HOSPITAL COURSE: The patient was admitted. He was started on the orders for Gamma nail procedure to be performed by Dr. Nabil Abdi. The day after his admission, he was taken to the Operating Room for a Gamma nail procedure. There were no intraoperative complications. On the first day postoperatively, his hemoglobin and hematocrit dropped to 7.5 and 22.2. Two units of packed red blood cells were transfused. He does have a history of anemia, but was most likely anemia post procedure. He continued with physical therapy for strengthening and conditioning. His medications were restarted. His hemoglobin and hematocrit stabilized. Today, he will be transferred back to [facility] for continuing rehab. LABORATORY: Initial hemoglobin was11.2 and hematocrit 33.7. It dropped to 7.5 and 22.2. The day following transfusion, it was 9.2 and 27.2. Today, it has stabilized up to 9.4 and 28.1. His WBCs started at 4 and are now 4.4. His electrolytes were basically unremarkable during his hospital stay. His BUN was 44. It got as high as 55. Today, it is 53. Baseline BUN is in the mid-40s. His creatinine was 1.76 on admission and got as high as 1.8. Today, it is 1.88. His baseline creatinine is approximately 1.9 to 2. Urinalysis was done and was unremarkable. DISCHARGE PLAN: The patient will be discharged to [facility]. He is in good condition. He is to resume his previous diet as well as his previous medications. We have added acetaminophen with codeine as well as 31 additional days of Xarelto for postoperative anticoagulation. He is to followup with his primary care physician, Dr. Chi Bishop, within one to two weeks as well as followup with Dr. Abdi as instructed. DISCHARGE MEDICATIONS: 1. Acetaminophen. 2. Vitamin D. 3. Multivitamins. 4. Folic acid. 5. Furosemide. 6. Aspirin. 7. Ferrous sulfate. 8. Arginine. 9. Melatonin. 10. Lisinopril. 11. Ascorbic acid. 12. Cetirizine. 13. Vitamin A. 14. MiraLAX. 15. Levothyroxine. 16. Levemir. 17. Guaifenesin. 18. Robitussin DM. 19. Xarelto. 20. Acetaminophen with codeine #3. [facility][id number] [facility]
== END 2018-08-17 14:49 | DRG 481 ==
LOC: ER 07:45 → MS 11:35
PROVIDERS: ADMIT Nurse Practitioner; ATTEND Nurse Practitioner Acute Care
PROC: 0QS736Z Reposition Left Upper Femur with Intramedullary Internal Fixation Device, Percutaneous Approach (ICD-10-PCS; principal; 2018-08-13 07:00)
DX: S72.142A Displaced intertrochanteric fracture of left femur, initial encounter for closed fracture (principal); N17.9 Acute kidney failure, unspecified; D62 Acute posthemorrhagic anemia; W19.XXXA Unspecified fall, initial encounter; I12.9 Hypertensive chronic kidney disease with stage 1 through stage 4 chronic kidney disease, or unspecified chronic kidney disease; E11.22 Type 2 diabetes mellitus with diabetic chronic kidney disease; N18.9 Chronic kidney disease, unspecified; E03.9 Hypothyroidism, unspecified; I25.10 Atherosclerotic heart disease of native coronary artery without angina pectoris; E11.51 Type 2 diabetes mellitus with diabetic peripheral angiopathy without gangrene; F03.90 Unspecified dementia, unspecified severity, without behavioral disturbance, psychotic disturbance, mood disturbance, and anxiety; Z66 Do not resuscitate; Z95.1 Presence of aortocoronary bypass graft; Z79.82 Long term (current) use of aspirin; Z79.899 Other long term (current) drug therapy; Z88.0 Allergy status to penicillin; Z88.2 Allergy status to sulfonamides; Z88.3 Allergy status to other anti-infective agents; Y92.129 Unspecified place in nursing home as the place of occurrence of the external cause; Z79.4 Long term (current) use of insulin

== ENCOUNTER → 2018-08-29 | Outpatient (CLI) | payer MEDICARE, OTHER ==
--- NOTE | 2018-08-29 15:54 | RAD ---
EXAM DESCRIPTION: Hip,Left 2 Views: CR/DR/XR. CLINICAL HISTORY: 88 years Male, M25.552 COMPARISON: Left hip 08/13/2018. TECHNIQUE: 2 views AP left hip neutral and abduction position. Impression: Again noted is intramedullary nail in the superior femur with Zickel-type nail in the left femoral head and neck. Customary positioning. Displacement of fracture fragments again noted but not increased from the prior study. Appearance of bone around the components is unremarkable. Hardware is intact. Electronically signed by: Evan Stoner MD 08/29/2018 3:51 PM CDT
== END ==
LOC: RAD 09:15
PROVIDERS: ATTEND Orthopaedic Surgery
DX: S72.142S Displaced intertrochanteric fracture of left femur, sequela (principal); Z98.890 Other specified postprocedural states

== ENCOUNTER → 2018-10-30 | Outpatient (CLI) | payer MEDICARE, OTHER ==
--- NOTE | 2018-10-31 17:24 | RAD ---
EXAM DESCRIPTION: Hip,Left 2 Views CLINICAL HISTORY: S72.92XD COMPARISON: 26 Sep 2018 TECHNIQUE: 2 views left FINDINGS: A gamma nail is observed in the left hip traversing a comminuted intratrochanteric fracture. Callus formation is observed at the fracture site. Alignment of the fracture remains unchanged when compared to the prior exam. No new injury is seen. Surgical clips are observed along the medial aspect of the left thigh. Dense calcific atherosclerotic changes observed in the profunda femoral and superficial femoral arteries. IMPRESSION: ORIF left hip fracture. There has been slight interval collapse of the femoral neck when compared with the remote exams. Electronically signed by: Olivier Conklin MD 10/31/2018 5:22 PM CDT
== END ==
LOC: RAD 09:20
PROVIDERS: ATTEND Orthopaedic Surgery
DX: S72.92XD Unspecified fracture of left femur, subsequent encounter for closed fracture with routine healing (principal)